=== PATIENT | male | born 1995 | race Two or more races ===

== ENCOUNTER → 2018-01-03 20:46 | Emergency (ER) | payer SELFPAY ==
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
[2018-01-04 01:49] VITALS: BP 166/89
--- NOTE | 2018-01-04 02:03 | ED ---
Progress - Progress Note Progress Note: Pt signed out from Dr. Burr pending MHE. Per filing and polishing supervisor the pt is diagnosed with adjustment disorder. The pt will be discharged and is agreeable to this plan. - Consult/PCP Time Called: 21:18 Course/Dx - Course Course Of Treatment: Pt signed out from Dr. Burr pending MHE. Per filing and polishing supervisor the pt is diagnosed with adjustment disorder. The pt will be discharged and is agreeable to this plan. - Diagnoses Provider Diagnoses: Adjustment disorder Discharge - Sign-Out/Discharge Documenting (check all that apply): Patient Departure - DC - Discharge Plan Condition: Stable Disposition: HOME Referrals: Dann Uriarte MD [Primary Care Provider] - Additional Instructions: Per completion of a mental health evaluation, you are cleared for release and do not require inpatient psychiatric hospitalization at this time. Please go to nearest emergency room or call 911 if safety concerns arise or condition worsens. Contact [facility] or [facility] for counseling [facility] [address] [place] [address] Walk-in hours are Tuesday - Tuesday, 9am - 2:30pm or call for appointment [facility] [address] [facility] / [place] [address] Important Phone Numbers: [facility] [phone] Suicide Prevention and Crisis Services........................ [phone] National Suicide Prevention Lifeline............................ 398-176-FBRK (2856) [facility]....................... [phone] Alcoholics Anonymous............................................... [phone] [facility].............. [phone] [facility] Police.............................................. - Billing Disposition and Condition Condition: STABLE Disposition: Home - Attestation Statements Document Initiated by Scribe: Yes Documenting Scribe: Jeffrey Steen Provider For Whom Jamieibe is Documenting (Include Credential): Ahsan Gallardo Scribe Attestation: IJeffrey, scribed for Ahsan Gallardo on 01/04/18 at 0207. Scribe Documentation Reviewed: Yes Provider Attestation: The documentation as recorded by the Jeffrey lopes accurately reflects the service I personally performed and the decisions made by Ahsan arita
== END | disposition home or self-care (01) ==
LOC: ED 20:46
DX: F43.20 Adjustment disorder, unspecified (principal); R45.851 Suicidal ideations
CPT/HCPCS: 99284